=== PATIENT | male | born 1935 | race Caucasian/White ===

== ENCOUNTER → 2020-03-25 | Emergency (ER) | payer MEDICARE ==
[~2020-03-25] VITALS: Ht 175.3 cm; Wt 64.0 kg
[~2020-03-25] MED LIST: ASPI-1265 PO; CAR30T PO; CARCD120C PO; ESCI10TA45 PO; LIDOcaine 1% (10mg/ml)w/preservative injection 20ml MDV ONE; METF500T PO; NAPR-56 CORPAK; PRAV40TA65 PO; SOLI5TAB6 PO; diphenhydrAMINE 50 mg/ml inj ONE; fentaNYL/PF 50MCG/1 ML 2ML syringe ONE; heparin 10,000 units/1 ML INJ IV ONE; heparin 10,000 units/1 ML INJ IV PRN; heparin 25,000 UNIT/250ml bag 250 ML IV SCH; heparin, porcine-25,000 units/D5-250ml premix IV ONE; iohexol 350 MG/ML 50ML vial IV ONE; iohexol 350MG/ML 100ml bottle IV ONE; midazolam 2 mg/2 ml injection ONE; nitroGLYCERIN 0.4mg SUBLingual tab SL ONE; nitroGLYCERIN 0.4mg SUBLingual tab SL PRN; tirofiban 5mg in NS 100mL 100 ML IV ONE; tirofiban 5mg in NS 100mL 100 ML IV SCH
[2020-03-25 15:49] VITALS: BP 135/84
[2020-03-25 15:58] LABS: BASOPHILS # (AUTO) 0.1 X10'3 (0-0.2); BASOPHILS % (AUTO) 0.8 % (0-1); EOSINOPHILS # (AUTO) 0.2 X10'3 (0-0.9); EOSINOPHILS % (AUTO) 2.8 % (0-6); HEMOGLOBIN 14.1 g/dl (14.0-17.9); LYMPHOCYTES # (AUTO) 1.9 X10'3 (1.1-4.8); LYMPHOCYTES % (AUTO) 23.7 % (21-51); MEAN CORPUSCULAR HEMOGLOBIN 35.2 PG (27.0-31.0); MEAN CORPUSCULAR HGB CONC 34.3 g/dL (33.0-36.5); MEAN CORPUSCULAR VOLUME 102.7 FL (78-98); MEAN PLATELET VOLUME 9.3 FL (7.4-10.4); MONOCYTES # (AUTO) 0.8 X10'3 (0-0.9); MONOCYTES % (AUTO) 10.3 % (2-12); NEUTROPHILS % (AUTO) 62.4 % (42-75); PLATELET COUNT 171 X10'3 (140-440); RED CELL DISTRIBUTION WIDTH 13.3 % (11.5-14.5)
[2020-03-25 16:11] LABS: PARTIAL THROMBOPLASTIN TIME 21 SECONDS (22-32)
[2020-03-25 16:14] LABS: ALANINE AMINOTRANSFERASE 37 U/L (12-78); ALBUMIN 3.6 G/DL (3.4-5.0); ALKALINE PHOSPHATASE 80 IU/L (46-116); ANION GAP 9 (8-16); ASPARTATE AMINO TRANSFERASE 25 U/L (10-37); BILIRUBIN,TOTAL 0.3 MG/DL (0.1-1.0); BLOOD UREA NITROGEN 25 MG/DL (7-18); BUN/CREATININE RATIO 22.3 (5.4-32.0); CALCIUM 8.8 MG/DL (8.5-10.1); CHLORIDE 106 MMOL/L (99-107); CREATININE 1.12 MG/DL (0.60-1.10); GLUCOSE 141 MG/DL (70-104); POTASSIUM 4.2 MMOL/L (3.5-5.1); SODIUM 140 MMOL/L (135-145); TOTAL CARBON DIOXIDE 25.2 MMOL/L (24-32); TOTAL PROTEIN 7.1 G/DL (6.4-8.2); eGFR 62 ML/MIN
== END | disposition home or self-care (01) ==
LOC: ER 15:29
DX: I21.3 ST elevation (STEMI) myocardial infarction of unspecified site (principal); E78.00 Pure hypercholesterolemia, unspecified; Z85.9 Personal history of malignant neoplasm, unspecified; Z88.0 Allergy status to penicillin; Z79.82 Long term (current) use of aspirin; Z79.899 Other long term (current) drug therapy
CPT/HCPCS: 36415; 71045; 80053; 83880; 84484; 85025; 85610; 85730; 93005; 93458; 96365; 96368; 96376; 99152; 99153; 99291; C1769; J1200; J1644; J2001; J2250; J3010; J3246; J7040; Q9967; 99285; A4620

== ENCOUNTER 2021-11-18 08:14 | Day surgery (SDC) | payer MEDICARE ==
[2021-11-12 16:27] LABS: BASOPHILS # (AUTO) 0.1 X10'3 (0-0.2); BASOPHILS % (AUTO) 0.7 % (0-1); EOSINOPHILS # (AUTO) 0.7 X10'3 (0-0.9); EOSINOPHILS % (AUTO) 9.3 % (0-6); LYMPHOCYTES # (AUTO) 1.8 X10'3 (1.1-4.8); LYMPHOCYTES % (AUTO) 24.4 % (21-51); MEAN CORPUSCULAR HEMOGLOBIN 33.1 PG (27.0-31.0); MEAN CORPUSCULAR HGB CONC 33.1 g/dL (33.0-36.5); MEAN CORPUSCULAR VOLUME 99.9 FL (78-98); MEAN PLATELET VOLUME 8.2 FL (7.4-10.4); MONOCYTES # (AUTO) 0.9 X10'3 (0-0.9); MONOCYTES % (AUTO) 12.8 % (2-12); NEUTROPHILS # (AUTO) 3.8 X10'3 (1.8-7.7); NEUTROPHILS % (AUTO) 52.8 % (42-75); PRE OP HEMATOCRIT 34.2 % (42.0-52.0); PRE OP HEMOGLOBIN 11.3 g/dL (14.0-17.9); PRE OP PLATELET COUNT 241 X10'3 (140-440); RED BLOOD COUNT 3.42 X10'6 (4.70-6.10); RED CELL DISTRIBUTION WIDTH 13.5 % (11.5-14.5)
[2021-11-12 16:39] LABS: ALBUMIN 3.4 G/DL (3.4-5.0); ALBUMIN/GLOBULIN RATIO 0.9 (1.1-1.5); ALKALINE PHOSPHATASE 106 IU/L (46-116); BLOOD UREA NITROGEN 38 MG/DL (7-18); CALCIUM 9.2 MG/DL (8.5-10.1); CHLORIDE 110 MMOL/L (99-107); CREATININE 1.52 MG/DL (0.60-1.10); PRE OP ALT 26 U/L (30-65); PRE OP ANION GAP 12 (8-16); PRE OP AST 19 U/L (10-37); PRE OP BILIRUB, TOTAL 0.2 MG/DL (0.0-1.0); PRE OP GLUCOSE 105 MG/DL (70-104); PRE OP POTASSIUM 4.7 MMOL/L (3.4-5.1); PRE OP SODIUM 145 MMOL/L (135-145); TOTAL CARBON DIOXIDE 23.5 MMOL/L (24-32); TOTAL PROTEIN 7.4 G/DL (6.4-8.2); eGFR 44 ML/MIN
[2021-11-18] VITALS (13 sets, daily range): BP systolic 95–154; BP diastolic 52–93
[~2021-11-18] VITALS: Ht 172.7 cm; Wt 75.4 kg
[~2021-11-18 08:14] MED LIST changes: +ATOR40TA72 PO; +BECL7.3A INH; +BUPIVAcaine/PF 2.5mg/ml (0.25%) 10ml vial ONE; -CAR30T PO; -CARCD120C PO; +CYAN500T71 PO; +DICL100G30 TOP; -ESCI10TA45 PO; +FLO0.4C PO; +FLUT16SP26 BOTHNARES; +FOLI0.4T14 PO; -LIDOcaine 1% (10mg/ml)w/preservative injection 20ml MDV ONE; -METF500T PO; +MULT-1085 PO; -NAPR-56 CORPAK; -PRAV40TA65 PO; +SERT-432 PO; -SOLI5TAB6 PO; +clindamycin-Cleocin 900mg/D5W 50 ML IV ONE; -diphenhydrAMINE 50 mg/ml inj ONE; +famotidine 20mg tablet PO ONE; -fentaNYL/PF 50MCG/1 ML 2ML syringe ONE; -heparin 10,000 units/1 ML INJ IV ONE; -heparin 10,000 units/1 ML INJ IV PRN; -heparin 25,000 UNIT/250ml bag 250 ML IV SCH; -heparin, porcine-25,000 units/D5-250ml premix IV ONE; -iohexol 350 MG/ML 50ML vial IV ONE; -iohexol 350MG/ML 100ml bottle IV ONE; -midazolam 2 mg/2 ml injection ONE; -nitroGLYCERIN 0.4mg SUBLingual tab SL ONE; -nitroGLYCERIN 0.4mg SUBLingual tab SL PRN; +ringers solution, lacted 1,000 ML IV SCH; -tirofiban 5mg in NS 100mL 100 ML IV ONE; -tirofiban 5mg in NS 100mL 100 ML IV SCH
[2021-11-18] MEDS ORDERED: ringers solution, lacted 1,000 ML IV SCH (09:15)
[2021-11-18] MEDS ORDERED: labetalol 20mg/4ml (5mg/ml) syringe IV PRN (09:15)
[2021-11-18] MEDS ORDERED: morphine 2 MG/ML inj. syringe IV PRN (09:15)
[2021-11-18] MEDS ORDERED: morphine 4 MG/ML inj SYRINge IV PRN (09:15)
[2021-11-18] MEDS ORDERED: fentaNYL/PF 50MCG/1 ML 2ML syringe IV PRN ×2 (09:15)
[2021-11-18] MEDS ORDERED: hydrALAZINE 20mg/ml inj. IV PRN (09:15)
[2021-11-18] MEDS ORDERED: ondansetron/PF 4mg/2ml inj IV PRN (09:15)
[2021-11-18] MEDS ORDERED: LIDOcaine 0.5% (5mg/ml) 50ml vial ONE (11:33)
[2021-11-18] MEDS ORDERED: labetalol 20mg/4ml (5mg/ml) syringe IV ONE (11:33)
--- NOTE | 2021-11-18 11:55 | NUR ---
Received from OR via BIPIN, accompanied by Anesthesiologist DR STAPLETON and report given by Anesthesiolgist. PT PRESNTS WITH 20G LEFT FOREARM, LR, RESSING ON RIGHT WRIST CDI, ICE PACK APPLIED. VSS. Addendum: 11/18/21 at 1203 by Taylor Bello RN, RN Amended: Links added.
--- NOTE | 2021-11-18 14:05 | NUR ---
PT HAS MET ALL DC CRITERIA. IV DC'D WITH CANULA INTACT. PT GIVEN ICE BAG FOR LEFT HAND/WRIST AND EXTRA BAG FOR ICE. DC INSTRUCTIONS REVIEWED WITH PT AND PT'S WHO VERBALIZED UNDERSTANDING WITH NO FURTHER QUESTIONS AT THIS TIME. PT WAS WHEELED OUT OF HOSPITAL IN WHEEL CHAIR TO PRIVATE VEHICLE. PT'S DROVE PT HOME. Addendum: 11/18/21 at 1508 by Taylor Bello RN, RN Amended: Links added.
[2021-11-28] MEDS ORDERED: CYAN100T47 PO (11:55)
[2021-11-28] MEDS ORDERED: IRON-12 PO (11:55)
[2021-11-28] MEDS ORDERED: ACET-1008 PO (12:44)
[2021-11-28] MEDS ORDERED: BACL-11 PO (12:44)
[2021-11-28] MEDS ORDERED: IBUP-1985 PO (12:44)
== END 2021-11-18 14:05 | disposition home or self-care (01) ==
LOC: PAS 08:14
PROVIDERS: ATTEND Orthopaedic Surgery Hand Surgery
DX: G56.02 Carpal tunnel syndrome, left upper limb (principal); M65.332 Trigger finger, left middle finger; M65.342 Trigger finger, left ring finger; I25.2 Old myocardial infarction; J45.909 Unspecified asthma, uncomplicated; I25.10 Atherosclerotic heart disease of native coronary artery without angina pectoris; Z79.82 Long term (current) use of aspirin; Z79.899 Other long term (current) drug therapy; Z88.0 Allergy status to penicillin; Z96.649 Presence of unspecified artificial hip joint; Z72.89 Other problems related to lifestyle; Z95.1 Presence of aortocoronary bypass graft; Z98.42 Cataract extraction status, left eye; Z98.41 Cataract extraction status, right eye; Z85.46 Personal history of malignant neoplasm of prostate; Z86.73 Personal history of transient ischemic attack (TIA), and cerebral infarction without residual deficits
CPT/HCPCS: 26055; 36415; 64721; 80053; 82948; 85025; J3490; J7030; J7120; Z7506; Z7512; A4215